=== PATIENT | female | born 1990 | race Caucasian/White ===

== ENCOUNTER 2019-12-17 13:32 | Emergency (ER) | payer MEDICAID, OTHER ==
[~2019-12-17] VITALS: Ht 162.6 cm; Wt 72.6 kg
[2019-12-17 14:42] VITALS: BP 136/86
== END 2019-12-17 15:46 | disposition home or self-care (01) ==
LOC: ER 13:32
DX: J41.0 Simple chronic bronchitis (principal); F17.210 Nicotine dependence, cigarettes, uncomplicated
CPT/HCPCS: 71046

== ENCOUNTER 2021-04-25 16:30 | Observation (INO) | payer MEDICAID ==
[2021-04-25] MEDS ORDERED: PREN-96 PO (17:07)
== END 2021-04-25 17:58 | disposition home or self-care (01) ==
LOC: LDRP 16:30
PROVIDERS: ADMIT Obstetrics & Gynecology; ATTEND Obstetrics & Gynecology
DX: O26.893 Other specified pregnancy related conditions, third trimester (principal); R10.30 Lower abdominal pain, unspecified; R10.2 Pelvic and perineal pain; Z3A.35 35 weeks gestation of pregnancy
CPT/HCPCS: 59025; 81002; G0378